=== PATIENT | female | born 1950 | race Caucasian/White ===

== ENCOUNTER → 2020-06-01 08:06 | Outpatient (POV) | payer OTHER, SELFPAY ==
[2020-06-01 08:28] VITALS: BP 151/75; PULSE 75; RESP 18; TEMP 36.8; O2SAT 98; BMI 31.8
--- NOTE | 2020-06-01 08:39 | HMH.PMCON ---
Assessment and Plan (1) Degenerative disc disease Status: Chronic Qualifiers: Spinal region: lumbar Qualified Code(s): M51.36 - Other intervertebral disc degeneration, lumbar region Category: Medical (2) Spinal stenosis Status: Chronic Category: Medical Code(s): M48.00 - Spinal stenosis, site unspecified (3) Lumbar radiculopathy Status: Chronic Category: Medical Code(s): M54.16 - Radiculopathy, lumbar region (4) Back pain Status: Chronic Qualifiers: Back pain location: low back pain Chronicity: chronic Back pain laterality: midline Sciatica presence: with sciatica Sciatica laterality: bilateral sciatica Qualified Code(s): M54.41 - Lumbago with sciatica, right side; M54.42 - Lumbago with sciatica, left side; G89.29 - Other chronic pain Category: Medical Code(s): M54.9 - Dorsalgia, unspecified - Assessment and plan all Dx Assessment and Plan for all problems:: We will schedule the patient for an L4-L5 lumbar epidural steroid injection. I discussed the injection with the patient I explained the procedure to her she would like to proceed. Patient's not on any anticoagulation therapy. She is failed 6 months of conservative therapy. I will follow-up with her after her injection reassess her symptoms at that time. She has been instructed to call the office if she has any issues prior to her next appointment. Patient and I also discussed potentially needing more than 1 injection. Patient is agreeable. Dr. Velásquez has reviewed this note and agrees with this plan of care. This note was dictated using voice recognition software and may contain errors or omissions HPI - Data of Consult Consult date: 06/01/20 Requesting Physician: Lakeisha Shah APRN Primary Care Provider: Jeremias Roche MD - Consult Narrative Reason for consult: Back pain with bilateral leg radiculopathy History of present illness: Ms. Paula is a 69 year old female who presents today for consultation regards to her low back and leg pain. Patient began having pain back in September. Patient main complaint is low back and left leg pain with radiation of pain reaching to her toes. Patient has numbness tingling and burning at all times. She is now having radiation of the pain in her right leg at times. She is failed gabapentin and other medications. She has failed tramadol. The only medication she is currently on is an NSAID. Patient rates her pain today an 8 out of 10. Patient currently on tramadol but states it does not work well for her. Patient is interested in interventional treatment of her pain. Patient's positioning does not change her pain pattern or alleviate her pain. She is continuing a home stretching program. She is try to stay as active as possible. She is failed over 6 months of conservative treatments including medications, anti-inflammatories, home stretching program. Patient has not on any anticoagulation therapy. CC: Lakeisha Shah APRN [facility] History I have reviewed the patient's past medical history: Yes Medical History: Denies:: Cancer, Diabetes Mellitus Type 1, Diabetes Mellitus Type 2, MRSA *Have you ever received a pneumonia vaccine?: No *Have you received a flu vaccine this season?: No Other Medical History: Reports: Arthritis Laterality Cases: Bilateral: Tonsillectomy Amputation: No Fractures: No - *Social History Smoking Status: Current every day smoker Tobacco Type: cigarettes # Packs/Day (cigarettes): 1 Alcohol Intake: never Substance Use Type: denies use *Occupational Status:: retired Housing: house Household Members: other *Travel in the last 8 weeks: None Family Hx:: Unable to obtain Review of Systems - Review of Systems ROS General: no recent weight change, no fever, no sleep disturbances Respiratory: no cough, no shortness of air, no recurring pulmonary infections Cardiovascular/Peripheral Vascular: No chest pain, No palpitations, no edema, no shortness of
== END ==
PROVIDERS: PCP Family Medicine; Visit Provider Clinical Nurse Specialist Family Health
DX: M51.16 Intervertebral disc disorders with radiculopathy, lumbar region (principal); M48.00 Spinal stenosis, site unspecified; M54.41 Lumbago with sciatica, right side; M54.42 Lumbago with sciatica, left side; G89.29 Other chronic pain
CPT/HCPCS: 99202

== ENCOUNTER 2020-06-12 11:18 | Day surgery (SDC) | payer OTHER, SELFPAY ==
[2020-06-12 11:57] VITALS: BP 136/72; PULSE 67; RESP 18; TEMP 36.7; O2SAT 98; BMI 20.9
[2020-06-12 12:16] VITALS: BP 125/85; PULSE 85; RESP 18
--- NOTE | 2020-06-12 12:16 | HMH.PMPROC ---
- Procedure Date: 06/12/20 Time: 12:16 Anesthesiologist:: Ari Velásquez MD Complications:: None Pre-procedure Diagnosis:: Degenerative disc disease of lumbar spine with lumbar radiculopathy symptoms Post-procedure Diagnosis:: Same Indications for Procedure:: Patient is a pleasant 69-year-old white female who we are treating for low back pain with lumbar radiculopathy symptoms. She has failed 6 months of conservative therapy. Most of her pain is in her back rating down her left leg. We will do a lumbar pleural steroid injection today to help her with her pain symptoms. Procedure Details:: Lumbar epidural steroid injection under fluoroscopy Informed consent was obtained and the risk and benefits of the procedure was explained to the patient. The patient was taken to the procedure room. The patient was placed prone on the procedure table. The patient was prepped and draped in sterile fashion. C-arm fluoroscopy was used to view the lumbar spine. Skin and subcutaneous tissues were anesthetized using lidocaine. I placed an 18-gauge epidural needle and advanced into the L4-L5 interspace using fluoroscopic guidance and [id number] to air. After confirmation of needle placement in the epidural space with dye I injected 2 mL of lidocaine 1.5% with Depo-Medrol 80 mg. Patient tolerated the procedure well with no complications. Plan and Disposition:: We will follow-up with her in 2 weeks. Will reevaluate symptoms at that time.
[2020-06-12 12:17] VITALS: BP 132/85; PULSE 85; RESP 18; O2SAT 99
[2020-06-12 12:30] VITALS: BP 155/71; PULSE 66; RESP 18; O2SAT 98
== END 2020-06-12 12:30 | disposition home or self-care (01) ==
LOC: SC.PAINP 11:20
PROVIDERS: PCP Family Medicine; Visit Provider Anesthesiology
DX: M51.16 Intervertebral disc disorders with radiculopathy, lumbar region (principal); Z87.442 Personal history of urinary calculi; G43.909 Migraine, unspecified, not intractable, without status migrainosus; R56.9 Unspecified convulsions; Z88.6 Allergy status to analgesic agent; Z88.2 Allergy status to sulfonamides; Z88.8 Allergy status to other drugs, medicaments and biological substances; Z72.0 Tobacco use
CPT/HCPCS: 62323; J1040; Q9966

== ENCOUNTER → 2020-07-09 08:24 | Outpatient (POV) | payer OTHER, SELFPAY ==
[2020-07-09 08:38] VITALS: BP 149/93; PULSE 69; RESP 18; TEMP 36.6; O2SAT 98; BMI 21.7
--- NOTE | 2020-07-09 08:43 | HMH.PAINSOAP ---
[facility] Pain Management SOAP Note Subjective:: Is a 69-year-old white female who presents today for follow-up after lumbar epidural steroid injection. She has been treated for degenerative disc disease lumbar spine with lumbar radiculopathy symptoms. Patient's pain is primarily in her low back with radiation into bilateral lower extremities. Patient says her pain seems to be worse at night when she is laying down. She is having severe charley horses . She says that she is having severe numbness and tingling in her bilateral lower extremities. She says she has to get up through the night to stomp her feet on the floor to get any relief from the numbness and tingling. She rates her pain an 8 out of 10 today. She says that she did get about 40% relief with her lumbar epidural steroid injection. She says that she tried gabapentin in the past but it caused her to have severe nausea and head fogginess. She says she did not tolerate the medication very well. She is currently taking ibuprofen [id number]. She tried 6 months of conservative therapy of physical therapy and home stretching program. Patient says that the pain radiates worse into her left leg in comparison to her right leg. Review of Systems General: No recent weight changes, no fever, no sleep disturbances Respiratory: No cough, no shortness of air, no recurring pulmonary infections Cardiovascular/peripheral vascular: No chest pain, no palpitations, no edema, no shortness of breath Gastrointestinal: No new onset incontinence, normal bowel movements reported Genitourinary: No new onset incontinence Musculoskeletal: Low back pain with radiation into bilateral lower extremities Psychiatric: Normal mood/affect Neurological: [Denies weakness in extremities], [denies balance issues], numbness and tingling bilateral lower extremities and feet Objective:: Physical exam General: Alert and oriented x3, no acute distress, pleasant and cooperative, [on room air] Lungs: Respirations even and unlabored, symmetrical chest expansion Eyes: PERRL Musculoskeletal: Flexion and extension of lkumbar spine somewhat guarded secondary to pain, deep tendon reflexes normal, strength in upper and lower extremities [5/5], [abnormal gait noted] Neurological: Speech clear, etiquette teacher equal, no gross sensory deficit Assessment:: degenerative disc disease lumbar spine with lumbar radiculopathy symptoms Plan:: Patient would like to try a repeat lumbar epidural steroid injection. She did get 40% relief for about 4 to 5 days with her initial injection. We will start her on Lyrica 75 mg 1 tablet p.o. twice daily. She was unable to tolerate gabapentin. We will see if this helps with her numbness and tingling in her feet. We will see her back in the clinic after her injection to reassess her symptoms. She is not on any anticoagulation. Risks and benefits were explained to the patient regarding the procedure. She would like to proceed. The patient and I specifically discussed risk factors for COVID19. These risks include, but are not limited to age greater than 60, heart or lung disease, diabetes, immunosuppression, and travel. We also discussed NSAIDs may worsen COVID19 infection or symptoms. Patient should not use NSAIDs to treat COVID19 signs or symptoms. Patient was also informed that any type of corticosteroid of any form (oral or injection) will decrease the patient's immune system response and may increase the likelihood of COVID19 infection and symptoms. [facility] History I have reviewed the patient's past medical history: Yes Medical History: Reports:: Seizures Denies:: Cancer, Diabetes Mellitus Type 1, Diabetes Mellitus Type 2, MRSA *Have you ever received a pneumonia vaccine?: Yes *Have you received a flu vaccine this season?: No (REFUSES) Other Medical History: Reports: Arthritis. Denies: Blood Transfusion Reaction Laterality Cases: Bilateral: Tonsillectomy Other Surgeries: Yes: Other (de
== END ==
PROVIDERS: PCP Family Medicine; Visit Provider Clinical Nurse Specialist Family Health
DX: M51.16 Intervertebral disc disorders with radiculopathy, lumbar region (principal)
CPT/HCPCS: 99212

== ENCOUNTER 2020-07-31 10:58 | Day surgery (SDC) | payer OTHER, SELFPAY ==
[2020-07-31 11:48] VITALS: BP 154/94; PULSE 70; RESP 18; TEMP 36.4; O2SAT 98; BMI 20.9
[2020-07-31 12:32] VITALS: BP 135/78; PULSE 79; RESP 18; O2SAT 98
[2020-07-31 12:33] VITALS: BP 130/74; PULSE 85; RESP 18; O2SAT 98
--- NOTE | 2020-07-31 12:37 | P.PCN_ITS ---
- Procedure Date: 07/31/20 Time: 12:37 Anesthesiologist:: Ari Velásquez MD Complications:: None Pre-procedure Diagnosis:: Degenerative disc disease of lumbar spine with lumbar radiculopathy symptoms Post-procedure Diagnosis:: Same Indications for Procedure:: This patient is a pleasant 69-year-old white female who we are treating for low back pain with lumbar radiculopathy symptoms. She has increasing pain in her back rating down both legs. She did get some benefit from her last lumbar epidural steroid injection. Pain is worse in her left leg. Will do repeat lumbar epidural steroid injection under fluoroscopy today. Procedure Details:: Lumbar epidural steroid injection under fluoroscopy Informed consent was obtained and the risk and benefits of the procedure was explained to the patient. The patient was taken to the procedure room. The patient was placed prone on the procedure table. The patient was prepped and draped in sterile fashion. C-arm fluoroscopy was used to view the lumbar spine. Skin and subcutaneous tissues were anesthetized using lidocaine. I placed an 18-gauge epidural needle and advanced into the L4-L5 interspace using fl uoroscopic guidance and [id number]-zw-[id number] to air. After confirmation of needle placement in the epidural space with dye I injected 2 mL of lidocaine 1.5% with Depo-Medrol 80 mg. Patient tolerated the procedure well with no complications. Plan and Disposition:: We will follow-up with her in 2 weeks. Will reevaluate symptoms at that time.
[2020-07-31 12:40] VITALS: BP 162/80; PULSE 70; RESP 18; O2SAT 98
== END 2020-07-31 12:40 | disposition home or self-care (01) ==
LOC: SC.PAINP 10:59
PROVIDERS: PCP Family Medicine; Visit Provider Anesthesiology
DX: M51.16 Intervertebral disc disorders with radiculopathy, lumbar region (principal); M19.90 Unspecified osteoarthritis, unspecified site; R56.9 Unspecified convulsions; Z82.49 Family history of ischemic heart disease and other diseases of the circulatory system; Z88.6 Allergy status to analgesic agent; Z88.2 Allergy status to sulfonamides; Z72.0 Tobacco use
CPT/HCPCS: 62323; J1040; Q9966

== ENCOUNTER → 2020-09-07 10:28 | Outpatient (POV) | payer OTHER, SELFPAY ==
--- NOTE | 2020-09-07 10:51 | P.CONS_ITS ---
[facility] Pain Management SOAP Note Subjective:: Is a 69-year-old white female who we are treating for low back pain with lumbar radiculopathy symptoms. She is had 2 epidural steroid injections to which she states made her pain worse. She states that she does not want any more injective therapy. I agree with her I do not think any additional injections will be beneficial. She does have spinal stenosis I discussed a surgical consultation she is uninterested. Patient would like to move forward with a plan of care involving a chiropractor. She rates her pain a 5 out of 10. ROS General: no recent weight change, no fever, no sleep disturbances Respiratory: no cough, no shortness of air, no recurring pulmonary infections Cardiovascular/Peripheral Vascular: No chest pain, No palpitations, no edema, no shortness of breath. Gastrointestinal: no new onset incontinence, normal bowel movements reported Genitourinary: no new onset incontinence Musculoskeletal: Back pain, leg pain Psychiatric: normal mood/ affect Neurological: [denies new onset weakness in extremities], [denies new onset balance issues] Objective:: Physical Exam General: Alert and oriented x3, no acute distress, pleasant and cooperative, [on room air] Lungs: Resps E/U, Symmetrical chest expansion, Eyes: PERRL Musculoskeletal: Flexion and extension of lumbar spine somewhat guarded secondary to pain, deep tendon reflexes normal, strength in upper and lower extremities [5/5], [abnormal gait noted] Neurological: speech clear, credit operations specialist equal, no gross sensory deficits Assessment:: Degenerative disc disease lumbar spine lumbar radiculopathy, spinal stenosis with neurogenic claudication Plan:: We will see the patient back if she needs additional intervention or would like to be referred to a surgeon. She is been instructed to call us if her pain worsens. She is going to move forward with a chiropractor at this time. Dr. Velásquez has reviewed this note and agrees with this plan of care. This note was dictated using voice recognition software and may contain errors or omissions [facility] History I have reviewed the patient's past medical history: Yes Medical History: Denies:: Cancer, Diabetes Mellitus Type 1, Diabetes Mellitus Type 2, MRSA, Seizures *Have you ever received a pneumonia vaccine?: No *Have you received a flu vaccine this season?: No Other Medical History: Reports: Arthritis. Denies: Blood Transfusion Reaction Laterality Cases: Bilateral: Tonsillectomy Other Surgeries: Yes: Other (dental extraction/cyst removal) Amputation: No Fractures: No - *Social History Smoking Status: Current every day smoker Tobacco Type: cigarettes # Packs/Day (cigarettes): 1 Alcohol Intake: never Substance Use Type: denies use *Occupational Status:: retired Housing: house Household Members: spouse *Travel in the last 8 weeks: None Family Hx:: Unable to obtain
[2020-09-07 11:12] VITALS: BP 138/87; PULSE 74; RESP 18; TEMP 36.6; O2SAT 99; BMI 21.7
== END ==
PROVIDERS: PCP Family Medicine; Visit Provider Clinical Nurse Specialist Family Health
DX: M51.16 Intervertebral disc disorders with radiculopathy, lumbar region (principal); M48.062 Spinal stenosis, lumbar region with neurogenic claudication
CPT/HCPCS: 99212; G0463

== ENCOUNTER 2023-11-03 18:46 | Outpatient (CLI) | payer MEDICARE, SELFPAY ==
[2023-11-03 18:58] LABS: Basophils # 0.1 K/mm3 (0-0.2); Basophils % 0.9 % (0.1-2.0); Eosinophils # 0.2 K/mm3 (0.0-0.4); Eosinophils % 1.8 % (0.1-12.0); Lymphocytes % 35.8 % (10-50); Mean Corpuscular HGB Conc 32.6 g/dL (31.8-35.4); Mean Corpuscular Hemoglobin 32.7 pg (27.0-31.2); Mean Corpuscular Volume 100.3 fl (81-99); Mean Platelet Volume 9.4 fl (7.4-10.4); Monocytes # 0.5 K/mm3 (0.1-1.0); Monocytes % 5.9 % (1.7-9.3); Neutrophils # 4.6 K/mm3 (1.8-7.8); Neutrophils % 55.7 % (37.0-80.0); Platelet Count 258 K/mm3 (142-424); Red Blood Count 4.58 M/mm3 (4.20-5.40); Red Cell Distribution Width 13.2 % (11.5-17.5); White Blood Count 8.3 K/mm3 (4.8-10.8)
[2023-11-03 19:14] LABS: Alanine Aminotransferase 21 U/L (12-78); Albumin Level 4.6 g/dl (3.5-5.0); Albumin/Globulin Ratio 2.2 (1.1-1.8); Alkaline Phosphatase 109 U/L (38-126); Anion Gap 10.3 mEq/L (5-15); Aspartate Amino Transferase 25 U/L (14-36); Bilirubin,Total 0.4 mg/dl (0.2-1.3); Blood Urea Nitrogen 10 mg/dl (7-17); Calcium 9.9 mg/dl (8.4-10.2); Carbon Dioxide 28 mmol/L (22.0-30.0); Chloride 107 mmol/L (98-107); Chol/HDL Ratio 5.2 (1-3.5); Cholesterol 276 mg/dl (140-200); Estimated Glomerular Filt Rate 82 ml/min (>60); GFR (African American) 100 ML/MIN (>60); Globulin 2.1 g/dL (1.3-3.2); Glucose 101 mg/dl (74-100); HDL Cholesterol 53 mg/dl (40-60); Potassium 4.3 mmoL/L (3.5-5.1); Sodium 141 mmol/L (136-145); Total Protein,Serum 6.7 g/dl (6.3-8.2); Triglycerides 219 mg/dl (30-150); VLDL Cholesterol 44 mg/dL (0-40)
[2023-11-03 19:25] LABS: Direct LDL Cholesterol 151.81 mg/dL (100-129)
== END 2023-11-03 23:59 ==
LOC: LAB.DROPOF 18:47
PROVIDERS: PCP Family Medicine; Visit Provider Family Medicine
DX: E78.5 Hyperlipidemia, unspecified (principal); R20.0 Anesthesia of skin; R20.2 Paresthesia of skin
CPT/HCPCS: 80053; 80061; 85025

== ENCOUNTER 2024-11-28 09:03 | Outpatient (CLI) | payer MEDICARE, SELFPAY ==
[2024-11-28 18:17] LABS: Basophils % 0.5 % (0.1-2.0); Eosinophils # 0.1 K/mm3 (0.0-0.4); Eosinophils % 1.1 % (0.1-12.0); Hematocrit 45.4 % (37.0-47.0); Hemoglobin 14.8 g/dL (12.2-16.2); Lymphocytes # 2.3 K/mm3 (0.7-4.5); Lymphocytes % 27.5 % (10-50); Mean Corpuscular HGB Conc 32.6 g/dL (31.8-35.4); Mean Corpuscular Hemoglobin 30.8 pg (27.0-31.2); Mean Corpuscular Volume 94.6 fl (81-99); Mean Platelet Volume 10.3 fl (7.4-10.4); Monocytes # 0.7 K/mm3 (0.1-1.0); Neutrophils # 5.1 K/mm3 (1.8-7.8); Neutrophils % 61.8 % (37.0-80.0); Nucleated Red Blood Cells # 0 10^3/uL; Nucleated Red Blood Cells % 0 %; Platelet Count 272 K/mm3 (142-424); Red Cell Distribution Width 13.2 % (11.5-17.5); Red Cell Distribution Width-SD 45.6 fL; White Blood Count 8.2 K/mm3 (4.8-10.8)
[2024-11-28 19:33] LABS: Albumin Level 4.4 g/dl (3.5-5.0); Chloride 107 mmol/L (98-107); Sodium 141 mmol/L (136-145)
[2024-11-28 19:34] LABS: Potassium 4.2 mmoL/L (3.5-5.1)
[2024-11-28 19:36] LABS: Alanine Aminotransferase 13 U/L (12-78); Albumin/Globulin Ratio 1.6 (1.1-1.8); Alkaline Phosphatase 110 U/L (38-126); Anion Gap 12.2 mEq/L (5-15); Aspartate Amino Transferase 21 U/L (14-36); Bilirubin,Total 0.5 mg/dl (0.2-1.3); Blood Urea Nitrogen 12 mg/dl (7-17); Carbon Dioxide 26 mmol/L (22.0-30.0); Cholesterol 296 mg/dl (140-200); Estimated Glomerular Filt Rate 70 ml/min (>60); GFR (African American) 85 ML/MIN (>60); Globulin 2.7 g/dL (1.3-3.2); Total Protein,Serum 7.1 g/dl (6.3-8.2); Triglycerides 199 mg/dl (30-150); VLDL Cholesterol 40 mg/dL (0-40)
[2024-11-28 19:37] LABS: Calcium 10.3 mg/dl (8.4-10.2); Chol/HDL Ratio 4.4 (1-3.5); Glucose 100 mg/dl (74-100); HDL Cholesterol 67 mg/dl (40-60)
[2024-11-28 19:53] LABS: Direct LDL Cholesterol 181.55 mg/dL (100-129)
[2024-11-28 20:17] LABS: Thyroid Stimulating Hormone 1.98 uIU/mL (0.465-4.68)
== END 2024-11-28 23:59 | disposition home or self-care (01) ==
LOC: LAB.DROPOF 11-29 09:55
PROVIDERS: PCP Family Medicine; Visit Provider Family Medicine
DX: I10 Essential (primary) hypertension (principal)
CPT/HCPCS: 80053; 80061; 84443; 85025

== ENCOUNTER 2025-04-03 09:20 | Outpatient (CLI) | payer MEDICARE, SELFPAY ==
--- OUTSIDE RECORDS SUMMARY | 2025-04-03 09:23 | XMS_ITS | Clinical Summary ---
Author Organization [facility] Address [address] [place] [address] Phone Care Team Providers Care Lead Cytogenetic Technologist Name Role Phone [place] Primary Care Provider Un available Allergies Active Allergy Reactions Criticality Noted Date Comments Codeine 04/21/2010 Hydrocodone Nausea And Vomiting 11/16/2011 Sulfa (Sulfonamide Antibiotics) 08/2009 Medications methocarbamol (ROBAXIN) 750 mg Oral Tablet Take 1 Tab by mouth 2 times daily as needed for Pain. 12 Tab 09/15/2019 Active Surgical History Surgery Date Site/Laterality Comments UTERINE FIBROID SURGERY TUBAL LIGATION TUBAL LIGATION reversed EYE SURGERY right cataract 10/2009 Medical History Medical History Date Comments Heartburn Seizures (HCC) age 18-19 due to migraine headache Chronic kidney disease stones Anesthesia difficulty esther g to sleep Social History Tobacco Use Types Packs/Day Years Used Date Smoking Tobacco: Every Day Cigarettes Smokeless Tobacco: Never Comments:pack every two days Alcohol Use Standard Drinks/Week Comments No 0 (1 standard drink = 0.6 oz pur e alcohol) Comments No Sex and Gender Information Value Date Recorded Sex Assigned at Not on file Legal Sex Female 3:01 AM EDT Gender Identity Not on file Sexual Orientation Not on file Obstetrics History Last Filed Vital Signs Vital Sign Reading Time Taken Comments Blood Pressure 159/80 09/15/2019 11:27 AM EST Pulse 69 09/15/2019 11:27 AM EST Temperature 36.4 C (97.6 F) 09/15/2019 11:27 AM EST Respiratory Rate 16 09/15/2019 11:27 AM EST Oxygen Saturation 99% 09/15/2019 11:27 AM EST Inhaled Oxygen Concentration - - Weight 65.8 kg (145 lb) 09/15/2019 11:27 AM EST Height 167.6 cm (5' 6 ) 09/15/2019 11:27 AM EST Body Mass Index 23.4 09/15/2019 11:27 AM EST Plan of Treatment Health Maintenance Due Date Last Done Comments Annual Wellness Exam 1953 Hepatitis C Screening 1968 DTaP/TDaP/Td (1 - Tdap) 1969 Breast Cancer Screening 1990 Cologuard 11/07/1995 Colon Cancer Screening 11/07/1995 Colonoscopy 11/07/1995 FIT 11/07/1995 Sigmoidoscopy 11/07/1995 Virtual Colonography 11/07/1995 Pneumococcal Vaccine 50+ (1 of 1 - PCV) 2000 Zoster (1 of 2) 2000 Bone Density Screening 11/07/2015 COVID-19 Vaccine ( - 2023-2 5 season) 2024 Influenza Vaccine (#1) 2025 Hepatitis B Vaccine Aged Out No longe r eligible based on patient's age to complete this topic Meningococcal B Vaccine Aged Out No l onger eligible based on patient's age to complete this topic Medical Devices Implanted Type Area Java Integration Developer Device Identifier Shelf Expiration Date Model / Serial / Lot Lens Intraocular 21.0 Diopter Acrysof Iq 13.0mm Length 6.0mm Aspheric Optic 0 Degree Modified-L Haptic - [id number] Implanted:Qty: 1 on 11/03/2010 at [facility] Right: Eye [facility]:SURG 02/18/2015 [id number]. 0 / [id number] / Lens Intraocular 21.5 Diopter Acrysof Iq 13.0mm Length 6.0mm Aspheric Optic 0 Degree Modified-L Haptic - [id number] Implanted:Qty: 1 on 11/22/2010 at [facility]:SURG 08/21/2015 [id number]. [id number] / / [id number] Insurance [facility] CHOICE PLUS [id number] GENERIC WORKERS' COMP on file * Guarantor: [employer] Account Type Relation to Patient Date of Phone Billing Address [employer] 1966 ATTN: [employer] [address] [address] [place] [address] Care Teams Lead Cytogenetic Technologist Relationship Specialty Start Date End Date Trell Shepard DO PCP - General 11/03/10
--- NOTE | 2025-04-03 09:27 | XR_ITS ---
FINAL REPORT CLINICAL HISTORY: right lateral and mid-foot pain, swelling and redness, no specific injury COMPARISON: None FINDINGS: AP, oblique and lateral views of the right foot were obtained. There is no acute fracture or dislocation. There is mild multijoint degenerative disease most pronounced at the first MTP joint. Soft tissues are unremarkable. 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 No acute osseous abnormality of the right foot. Reviewed, Interpreted and Dictated by Georgiana Booker MD Transcribed by Cathy Barajas Authenticated and [facility]
== END 2025-04-03 23:59 | disposition home or self-care (01) ==
LOC: RAD 09:21
PROVIDERS: PCP Family Medicine; Visit Provider Nurse Practitioner
DX: M19.071 Primary osteoarthritis, right ankle and foot (principal)
CPT/HCPCS: 73630

== ENCOUNTER 2025-06-17 09:46 | Outpatient (CLI) | payer MEDICARE, SELFPAY ==
[2025-06-17 14:39] LABS: Hematocrit 45.0 % (37.0-47.0); Hemoglobin 15.0 g/dL (12.2-16.2); Immature Granulocytes % 0.1 %; Mean Corpuscular HGB Conc 33.3 g/dL (31.8-35.4); Mean Corpuscular Hemoglobin 31.5 pg (27.0-31.2); Mean Corpuscular Volume 94.5 fl (81-99); Nucleated Red Blood Cells % 0 %; Platelet Count 293 K/mm3 (142-424); Red Blood Count 4.76 M/mm3 (4.20-5.40); Red Cell Distribution Width-SD 43.8 fL; White Blood Count 9.1 K/mm3 (4.8-10.8)
[2025-06-17 16:05] LABS: Albumin Level 3.5 g/dl (3.5-5.0); Chloride 104 mmol/L (98-107)
[2025-06-17 16:06] LABS: Potassium 4.1 mmoL/L (3.5-5.1); Sodium 137 mmol/L (136-145)
[2025-06-17 16:08] LABS: Alanine Aminotransferase 17 U/L (12-78); Albumin/Globulin Ratio 1.0 (1.1-1.8); Alkaline Phosphatase 114 U/L (38-126); Anion Gap 8.1 mEq/L (5-15); Aspartate Amino Transferase 24 U/L (14-36); Bilirubin,Total 0.4 mg/dl (0.2-1.3); Blood Urea Nitrogen 14 mg/dl (7-17); Carbon Dioxide 29 mmol/L (22.0-30.0); Creatinine,Serum 0.80 mg/dl (0.52-1.04); Estimated Glomerular Filt Rate 70 ml/min (>60); GFR (African American) 85 ML/MIN (>60); Globulin 3.4 g/dL (1.3-3.2); Total Protein,Serum 6.9 g/dl (6.3-8.2)
[2025-06-17 16:09] LABS: Calcium 9.5 mg/dl (8.4-10.2); Cholesterol 292 mg/dl (140-200); Glucose 104 mg/dl (74-100); HDL Cholesterol 62 mg/dl (40-60); Triglycerides 203 mg/dl (30-150)
--- OUTSIDE RECORDS SUMMARY | 2025-06-18 12:44 | XMS_ITS | Clinical Summary ---
Author Organization [facility] Address [address] [place] [address] Phone Care Team Providers Care Dip Dyer Name Role Phone [place] Primary Care Provider Un available Allergies [...] on file Sexual Orientation Not on file Last Filed Vital Signs Vital Sign Reading [...] 2000 Bone Density Screening 11/07/2015 COVID-19 Vaccine (1 - 2024-2 6 season) 2025 Influenza Vaccine (#1) 2025 Hepatitis B Vaccine Aged Out No longe r eligible based on patient's age to complete this topic Meningococcal B Vaccine Aged Out No l onger eligible based on patient's age to complete this topic Medical Devices Implanted Type Area Sourcing Specialist Device Identifier Shelf Expiration Date Model / Serial / Lot Lens Intraocular 21.0 Diopter Acrysof Iq 13.0mm Length 6.0mm Aspheric Optic 0 Degree Modified-L Haptic - [id number] Implanted:Qty: 1 on 11/03/2010 at [facility] Right: Eye [facility]:SURG 02/18/2015 [id number]. 0 / [id number] 2 / Lens Intraocular 21.5 Diopter Acrysof Iq 13.0mm Length 6.0mm Aspheric Optic 0 Degree Modified-L Haptic - [id number] Implanted:Qty: 1 on 11/22/2010 at [facility]:SURG 08/21/2015 [id number]. 5 / / [id number] Insurance [facility] CHOICE PLUS [id number] GENERIC WORKERS' COMP on file * Guarantor: [employer] Account Type Relation to Patient Date of Phone Billing Address [employer] 1966 ATTN: [employer]JAN [employer] [address] [address] [place] [address] Care Teams Dip Dyer Relationship Specialty Start Date End Date Trell Shepard DO PCP - General 11/03/10
== END 2025-06-17 23:59 | disposition home or self-care (01) ==
LOC: LAB.DROPOF 06-18 12:41
PROVIDERS: PCP Nurse Practitioner; Visit Provider Nurse Practitioner
DX: E78.5 Hyperlipidemia, unspecified (principal); I10 Essential (primary) hypertension; Z11.59 Encounter for screening for other viral diseases
CPT/HCPCS: 80053; 80061; 82043; 82570; 85025; 87389

== ENCOUNTER 2025-07-01 09:26 | Outpatient (CLI) | payer MEDICARE, SELFPAY ==
[2025-07-01 16:50] LABS: Vitamin B12 439 pg/mL (239-931)
--- OUTSIDE RECORDS SUMMARY | 2025-07-02 13:48 | XMS_ITS | Clinical Summary ---
Author Organization [facility] Address [address] [place] [address] Phone Care Team Providers Care Head Chopper Name Role Phone [place] griff[place] Primary Care Provider Un available Allergies [...] this topic Medical Devices Implanted Type Area Flower Machine Operator Device Identifier Shelf Expiration Date Model / Serial / Lot Lens Intraocular 21.0 Diopter Acrysof Iq 13.0mm Length 6.0mm Aspheric Optic 0 Degree Modified-L Haptic - [id number] Implanted:Qty: 1 on 11/03/2010 at [facility] Right: Eye [facility]:SURG 02/18/2015 [id number]. 0 / [id number] / Lens Intraocular 21.5 Diopter Acrysof Iq 13.0mm Length 6.0mm Aspheric Optic 0 Degree Modified-L Haptic - [id number] Implanted:Qty: 1 on 11/22/2010 at [facility]:SURG 08/21/2015 [id number]. 5 / / [id number] Insurance [facility] CHOICE PLUS [id number] GENERIC WORKERS' COMP on file * Guarantor: [employer] Account Type Relation to Patient Date of Phone Billing Address [employer] 1966 ATTN: [employer]JAN [employer] [address] [address] [place] [address] Care Teams Head Chopper Relationship Specialty Start Date End Date Trell Shepard DO PCP - General 11/03/10
== END 2025-07-01 23:59 | disposition home or self-care (01) ==
LOC: LAB.DROPOF 07-02 13:34
PROVIDERS: PCP Nurse Practitioner; Visit Provider Nurse Practitioner
DX: E53.8 Deficiency of other specified B group vitamins (principal)
CPT/HCPCS: 82607